=== PATIENT | male | born 1950 | race Caucasian/White ===

== ENCOUNTER → 2019-09-19 10:09 | Outpatient (CLI) | payer MEDICARE, SELFPAY ==
[2019-09-19 12:07] LABS: Prostate Specific Antigen Scrn 0.185 ng/mL (0.1-4.0)
== END ==
PROVIDERS: Referring Provider Student in an Organized Health Care Education/Training Program; Visit Provider Student in an Organized Health Care Education/Training Program
DX: Z12.5 Encounter for screening for malignant neoplasm of prostate (principal)
CPT/HCPCS: 36415; G0103

== ENCOUNTER → 2019-09-26 07:55 | Outpatient (CLI) | payer MEDICARE, SELFPAY ==
--- NOTE | 2019-09-26 07:57 | DI.US.S_ITS ---
PROCEDURE: US ABD AORTA ANEURYSM SCREEN INDICATIONS: AAA SCREEN TECHNIQUE: Real time scanning was performed of the aorta and iliac arteries, with image documentation. COMPARISON: None. FINDINGS: Aorta: Proximal aortic diameter measures 3.0 cm. Mid-aorta measures 2.7 cm. Distal aortic diameter is 2.0 cm. Iliac arteries: Right common iliac artery measures 1.1 cm. Left common iliac artery measures 1.2 cm. IMPRESSION: No aneurysm found. Dictated by: Dilshad Garcia M.D. on 09/26/2019 at 10:54 Approved by: Dilshad Garcia M.D. on 09/26/2019 at 10:55
== END ==
PROVIDERS: PCP Student in an Organized Health Care Education/Training Program; Referring Provider Student in an Organized Health Care Education/Training Program; Visit Provider Student in an Organized Health Care Education/Training Program
DX: Z13.6 Encounter for screening for cardiovascular disorders (principal); Z87.891 Personal history of nicotine dependence
CPT/HCPCS: 76706

== ENCOUNTER → 2019-11-17 10:00 | Outpatient (CLI) | payer MEDICARE, SELFPAY ==
--- NOTE | 2019-11-17 | DI.RAD.S_ITS ---
PROCEDURE: FL BARIUM SWALLOW W SPEECH INDICATIONS: Dysphagia, unspecified COMPARISON: None. TECHNIQUE: Examination was conducted in conjunction with speech pathology per standard protocol. In the lateral projection, filming was performed of the patient swallowing. AP projection filming may also be performed with patient swallowing. COMPARISON: FINDINGS: Function: The oral preparatory phase appears normal, with proper containment. The subsequent oral propulsive phase, pharyngeal phase, and esophageal phase of swallowing also appear normal with all proffered substances. No laryngotracheal penetration or aspiration. No pathologic vallecular pooling. Morphology: No cricopharyngeal bar is identified. No cervical esophageal webs. No Zenker's diverticulum. No strictures. IMPRESSION: Negative examination as above. Dictated by: Silver Frias M.D. on 11/17/2019 at 12:31 Approved by: Silver Frias M.D. on 11/17/2019 at 12:31
--- NOTE | 2019-11-18 15:41 | ST.SWALLOW ---
Visit Care Team Role Provider Type Henri Kwong MD Attending Provider Physician Primary Care Provider Referring Provider Specialty: Internal Medicine Address: [address] [place] [address], [address], [place], [address] Email: [email or web address] Modified Barium Swallow Study TAIL RIPPER Modified Barium Swallow Study Start: 11/17/19 11:18 Freq: Status: Active Protocol: Document 11/17/19 11:18 LL (Rec: 11/17/19 11:43 LL [id number]) Modified Barium Swallow Study Total Time Visit Start Time 10:25 Visit Stop Time 11:10 Total Visit Minutes [address] Henri Kwong Reason for Referral Dysphagia, unspecified. New onset of globus sensation. Setting Setting Outpatient Care Patient Information Identification Type Name,ID Card Patient History Dewey is a 69-year-old male with complaint of new onset of globus sensation over the past month. Per HPI on 10/29/19 , onset of globus sensation began around the same time Dewey stopped smoking cigarettes and began using nicotine patches. Dewey reported that the globus sensation began several days ( 1-2) before using nicotine patches and does not attribute recent smoking cessation to globus sensation. Dewey self -reported history of GERD and postnasal drip. Since his visit with Dr. Kwong on , Dewey reported that he has been using the nicotine patches for one month and continues experiencing intermittent globus sensation with worsening symptoms in the late afternoon. Dewey reported no episodes of coughing and/or throat clearing with solids and liquids. Subjective Observations Dewey arrived on time and provided case history. Dewey was alert, oriented x 4, and cooperative throughout evaluation. He was able to follow all instructions as well. Patient Positioning Position View Lat-A/P Imaging Lateral View Textures Administered Trials Presented Thin Liquid via Cup,[place] Liquid via Cup,Honey Liquid via Spoon,Pudding Thick Liquid via Spoon,Regular Textures, Barium Tablet Oral Phase Source: MBSIMP (TM) (C) Bolus Specific Scoring Grid Lip Closure WFL Tongue Control During Bolus Hold WFL Bolus Prep/Mastication WFL Bolus Transport/Lingual Motion WFL A/P Lingual Propulsion Delay No Oral Residue WFL Residue Clearing WFL Nasal Regurgitation No Additional Oral Phase Observations Oral Peripheral Exam: Normal oral cavity size and symmetrical structures WFL of strength, coordination, and range of motion (ROM). Dewey has complete natural dentition in adequate condition. Oral Phase: WNL. Minimal oral residue present which cleared with subsequent swallows, not abnormal for intake of barium contrast. Pharyngeal Phase Source: MBSIMP (TM) (C) Bolus Specific Scoring Grid Delayed Initiation of Pharyngeal Swallow No Soft Palate Elevation WFL Tongue Base Strength/Range of Motion WFL Residue Along the Tongue Base Yes: minimal - cleared with dry swallow / multiple swallows Clearance of Residue Along Tongue Base WFL Laryngeal Elevation WFL Anterior Hyoid Movement WFL Epiglottic Range of Motion WFL Vallecular Residue No: minimal - cleared with dry swallow / multiple swallows Clearance of Vallecular Residue WFL Laryngeal Vestibular Closure WFL Pharyngeal Stripping Wave WFL Pharyngeal Contraction WFL Posterior Pharyngeal Wall Residue Yes: minimal - cleared with dry swallow / multiple swallows Upper Esophageal Sphincter Opening WFL Residue in the Pyriform Sinuses Yes: minimal - cleared with dry swallow / multiple swallows Clearance of Residue in the Pyriform WFL Sinuses Pharyngoesophageal Backflow Observed Yes: minimal backflow observed Additional Pharyngeal Phase Observations No penetration or aspiration was observed. Minimal residue was observed at the tongue base, vallecular, and pyriform sinuses which cleared with dry swallow / multiple swallows. Minimal pharyngoesophageal backflow observed. A/P View Textures Administered Trials Presented Thin Liquid via Cup,Barium Tablet A/P View Observations Pharyngeal Contraction WFL Esophageal Function WFL Esophageal Clearance Upright Position WFL Additional Observations Rapid bolus flow through esophagus and into stomach was observed. Recommended further assessment of esophageal function due to phayrngoesophageal backflow observed and complaints of globus sensation. Clinical Impressions Dysphagia Type Within functional limits (WFL) Findings Dewey presents with normal oral and pharyngeal phases of swallow. He was educated of findings and recommended to follow standard aspiration precautions to ensure optimal safety for oral intake. He was recommended to follow-up with his primary care physician and receive a referral to GI. Dewey verbalized understanding and agreement with recommendations. Patient Appropriate for Therapy No Recommendations Diet Liquids Order Thin Diet Order Regular Medication Recommendation As Tolerated Aspiration Precautions Recommended Precautions Upright at 90 Degrees Additional Precautions General aspiration precautions Treatment Plan Recommended Referrals Primary Care Physician,GI Consult Compensatory Strategies Recommendations Sitting Upright (90 deg) Additional Recommendations/Comments Recommend follow-up with primary care physician and referral to GI to assess esophageal function / gastrointestinal tract due to globus sensation.
== END ==
PROVIDERS: PCP Student in an Organized Health Care Education/Training Program; Referring Provider Student in an Organized Health Care Education/Training Program; Visit Provider Student in an Organized Health Care Education/Training Program
DX: R13.10 Dysphagia, unspecified (principal)
CPT/HCPCS: 74230; 92611

== ENCOUNTER → 2020-07-16 09:27 | Outpatient (CLI) | payer MEDICARE, SELFPAY ==
[2020-07-16 10:55] LABS: COVID19 -Nasal RAPID Negative (Negative)
== END ==
PROVIDERS: PCP Student in an Organized Health Care Education/Training Program; Visit Provider Surgery
DX: Z20.822 Contact with and (suspected) exposure to COVID-19 (principal)
CPT/HCPCS: 87635; C9803

== ENCOUNTER 2020-07-19 06:25 | Day surgery (SDC) | payer MEDICARE, SELFPAY ==
--- NOTE | 2020-07-19 | PATH_ITS ---
[facility] Accession Number: [id number] . 01 Material submitted: . colon - 80CM COLON POLYP . 02 Diagnosis: 80 cm Colon Polyp: Portions of tubular adenoma x2. MRV 07/23/2020 0956 Local . 02 Electronically signed: . Carlita West MD, Pathologist NPI- [id number] . 01 Gross description: . 80CM COLON POLYP: Received in formalin are 2 fragment(s) of roberson, soft tissue measuring 0.2 x 0.2 x 0.2 cm to 0.3 x 0.2 x 0.2 cm submitted entirely in 1 cassette(s) /DENNIS 07/20/20202051 Local . 02 Pathologist provided ICD-10: K63.5, Z12.11 . 02 CPT . 476298 Performed at: 01 [facility] [address] [id number] MD Del Vasquez MD Phone: [phone] Performed at: [address] [facility] [address] [place], [place] [id number] MD Tameka Gallardo MD Phone: [phone]
[2020-07-19 07:11] VITALS: BP 138/78; PULSE 55; RESP 14; TEMP 36; O2SAT 96
[2020-07-19 07:13] VITALS: BMI 32.5
[2020-07-19] MEDS: LACTATED RINGERS 1,000 ML 200 ML IV (07:24)
--- NOTE | 2020-07-19 07:44 | PM.HP.1 ---
History of Present Illness History of Present Illness Date Patient Seen: 07/19/20 Time Patient Seen: 07:44 Chief complaint: SCREENING COLONOSCOPY Narrative: The patient presents for colorectal sreening. Most recent colonoscopy was 3 years ago significant for multiple benign polyps. No personal or family history of colon cancer. On further history denies any recent gastrointestinal symptoms. No nausea, vomiting, abdominal pain, loss of appetite, unexplained weight loss, change in bowel habits, diarrhea, constipation, melena, hematochezia, or bright red blood per rectum. Patient History Medical History Arthritis Chicken pox (~1960) Depression (~2012) Depression GERD (gastroesophageal reflux disease) Measles (~1962) Mumps (~1963) Plantar warts (~1966) Rheumatoid arthritis (~2009) Syncope (~2008) Syncope Surgical History Anesthesia History of coronary angiogram (~1997) History of right knee surgery (~2007) Family & Social History Family History Father Diabetes mellitus Mother Cancer Brother Rheumatoid arthritis Sister Arthritis Immune deficiency disorder Glucose intolerance Sister Arthritis Immune deficiency disorder Diverticulitis Grandfather Stroke Grandfather Stroke Grandmother Pneumonia Social History: household members none Tobacco & Substance use: Smoking Status Former smoker alcohol intake current alcohol intake frequency a few times a month Substance Use Type does not use Meds Home Medications and Allergies Home Medications Medication Instructions Recorded Confirmed Type No Known Home Medications 08/22/19 06/28/20 History Allergies Allergy/AdvReac Type Severity Reaction Status Date / Time No Known Drug Allergies Allergy Verified 07/19/20 07:23 Review of Systems Review of Systems ROS: Yes All systems reviewed with the patient and are negative except as otherwise documented Exam Vital Signs (past 8 hours): - 07/19/20 07:11 Temperature 96.8 F L Pulse Rate 55 L Respiratory Rate 14 Blood Pressure 138/78 Pulse Oximetry 96 Oxygen Delivery Method Room Air Narrative Exam Narrative: GENERAL-well developed adult male, no acute distress HEENT-no scleral icterus, hearing intact NECK-no JVD, trachea midline CVS- regular rate, no peripheral edema RESP-unlabored respiratory effort, no audible wheezing GI-soft, nontender nondistended MSK-no cyanosis or clubbing, extremities without deformity SKIN-warm, dry NEURO-alert and oriented, no focal deficits PYSCH-Appropriate mood and affect Assessment & Plan Assessment & Plan narrative: The patient requires colorectal screening and colonoscopy is recommended. Technical details were discussed. Risks, benefits, alternatives explained. Risks including but not limited to myocardial infarction, aspiration, bleeding, pain, missed lesion, incomplete examination, need for further radiographic studies, colonic perforation, and need for major abdominal surgery were discussed. All questions were answered to their satisfaction, and they are in agreement with this plan.
[2020-07-19] MEDS: MIDAZOLAM 5 MG/5 ML VIAL IV (08:01)
[2020-07-19] MEDS: fentaNYL 250 MCG/5 ML INJ IV (08:01)
--- NOTE | 2020-07-19 08:15 | PM.OP.ENDO ---
Operative Date/Time/Diagnoses Date of procedure: 07/19/20 Time of procedure: 08:15 Pre-op diagnosis: Personal history of colonic polyps Post-op diagnosis: same Procedure & Clinicians Study performed: Colonoscopy Same procedure as scheduled: Yes Indications: Personal history of colonic polyps Surgeon: Timbo Roth Procedure Notes Procedure in detail: Medications: Conscious sedation using 6 mg IV midazolam and 150 mcg IV of fentanyl The history and physical was performed/updated and the patient is ASA class is 2. The procedure was discussed in detail with the patient. Potential risks complications including infection, bleeding, missed diagnosis, perforation, need for surgery, and were explained. Their questions were answered and informed consent was obtained. Patient was brought to the procedure room and placed standard monitoring equipment. The patient's vital signs were monitored continuously throughout the entire procedure. Prior to starting time-out was performed. The patient was placed in the left lateral recumbent position. Procedural sedation was administered. Examination began with a thorough inspection of the perianal area there was no evidence of fissures, fistulae, external hemorrhoids or cutaneous malignancy. The colonoscopy scope was then placed into the anal canal and was advanced to the cecum, which was identified by the ileocecal valve, the appendiceal orifice and the confluence of the taenia. The scope was then slowly withdrawn examining colon thoroughly in all directions, irrigating it of any residual stool. 1. 5 mm polyp descending colon at 80 cm from the anal verge removed with biopsy forceps 2. Sigmoid diverticulosis 3. Grade 1 internal hemorrhoids The patient tolerated the procedure well. They will be discharged once criteria are met. The prep was of good/excellent quality. The withdrawl time was 7 minutes. The sedation time was 25minutes. Specimen(s): other (Polyp 80 cm) Complications: none Impression: Colonic polyp Post-procedure Recommendations: Colonscopy in 5 years Disposition: same day surgery
[2020-07-19 08:18] VITALS: BP 124/79; PULSE 55; RESP 10; TEMP 36.5; O2SAT 97
[2020-07-19 08:25] VITALS: BP 130/78; PULSE 56; RESP 12; O2SAT 94
[2020-07-19 08:30] VITALS: BP 129/75; PULSE 55; RESP 10; TEMP 37.1; O2SAT 95
[2020-07-19 08:46] VITALS: BP 125/88; PULSE 57; RESP 12; TEMP 36.1; O2SAT 96
--- NOTE | 2020-07-19 08:54 | SUR.PHASEII ---
Pt up steady on feet. Will DC to home with Ramirez.
== END 2020-07-19 08:57 | disposition home or self-care (01) ==
PROVIDERS: PCP Student in an Organized Health Care Education/Training Program; Referring Provider Student in an Organized Health Care Education/Training Program; Visit Provider Surgery
PROC: 0DJD8ZZ Inspection of Lower Intestinal Tract, Via Natural or Artificial Opening Endoscopic (ICD-10-PCS; CPT 45378; principal; 2020-07-19 07:45)
DX: Z12.11 Encounter for screening for malignant neoplasm of colon (principal); Z86.010 Personal history of colon polyps; K57.30 Diverticulosis of large intestine without perforation or abscess without bleeding; K64.0 First degree hemorrhoids; D12.6 Benign neoplasm of colon, unspecified
CPT/HCPCS: 45380; 99152; J2250; J3010

== ENCOUNTER → 2022-07-04 07:50 | Outpatient (CLI) | payer MEDICARE, SELFPAY ==
[2022-07-04 11:28] LABS: Cholesterol 196 mg/dL (140-199); HDL Cholesterol 56 mg/dL (40-60); LDL Cholesterol Calculated 126 mg/dL (<100); Triglycerides 69 mg/dL (35-150)
[2022-07-04 12:26] LABS: Hep C Virus Ab w/Reflex Quant NEGATIVE s/c (NEGATIVE)
[2022-07-04 17:20] LABS: Prostate Specific Antigen Scrn 0.507 ng/mL (0.1-4.0)
== END ==
PROVIDERS: PCP Student in an Organized Health Care Education/Training Program; Referring Provider Student in an Organized Health Care Education/Training Program; Visit Provider Student in an Organized Health Care Education/Training Program
DX: Z12.5 Encounter for screening for malignant neoplasm of prostate (principal); Z11.59 Encounter for screening for other viral diseases; Z13.220 Encounter for screening for lipoid disorders
CPT/HCPCS: 36415; 80061; 86803; G0103